=== PATIENT | female | born 1965 | race Caucasian/White ===

== ENCOUNTER → 2017-08-21 | Outpatient (CLI) | payer OTHER ==
[~2017-08-21] MED LIST: ABILIFY 5 MG TAB5 MG; ACETAMINOPHEN-1 EAC1 PO; ADULT LOW DOSE81 MG PO; ADVAIR 100-501 EACH; ADVAIR 250-501 EACH INH; ADVAIR HFA 230M12 GM; AMOX TR-K CLV1 EACH PO; ASPIR 8181 MG; ATIVAN0.5 MG PO; AUGMENTIN 875875 M1 PO; AUGMENTIN 875875 MG; AUGMENTIN 875875 MG PO; AZITHROMYCIN 2250 MG; BENADRYL25 MG PO; CARISOPRODOL 3350 MG PO; CHANTIX1 MG; CLARITIN10 MG; CLARITIN10 MG PO; CYMBALTA60 MG; DARVOCET-N 1001 EACH PO; DETROL; DEXILANT60 MG PO; DYMISTA NASAL S23 GM NS; FIORICET 50-321 EACH PO; FLAGYL500 MG; FLEXERIL PO; HYDROCODONE-AP1 EAC6 PO; IBUPROFEN 800800 M1 PO; LEVAQUIN 500 M500 MG PO; LIPITOR10 MG PO; LISINOPRIL5 MG PO; MEDROL DOSPAK21 TA1 PO; MEDROLDOSEPACK PO; MOBIC15 MG PO; MOBIC7.5 M1 PO; MONTELUKAST SOD10 MG PO; NAPROSYN500 MG PO; NEURONTIN300 MG PO; NICOTINE TRANSD14 M1 TP; NORCO 5-325 TA1 EACH PO; PERCOCET 5-3251 EACH PO; PERCOCET PO; PREDNISONE 20 M20 M1 PO; PREDNISONE50 MG PO; PRILOSEC40 MG; PROAIR HFA8.5 GM; PROAIR HFA8.5 GM IH; PROAIR HFA8.5 GM PO; ROBAXIN 750 MG750 M1 PO; SINGULAIR; SINGULAIR 10 MG10 MG PO; TESSALON PERLE100 MG; TRAMADOL 50 MG50 MG PO; TUMS; TUSSIONEX PENN473 ML PO; VITAMIN B-12500 MCG PO; VITAMIN D 5050000 I1 PO; VITAMIN D2000 UNIT PO; ZOFRAN ODT4 MG PO; ZOFRAN ODT4 MG SUBLING; ZOFRAN4 MG PO; ZOLOFT; ZOLOFT PO; ZOLOFT100 MG PO; ZOLOFT50 MG PO; ZPAK PO
== END ==
LOC: M.ULTRA 15:40
DX: M25.461 Effusion, right knee (principal); M71.21 Synovial cyst of popliteal space [Baker], right knee

== ENCOUNTER → 2018-02-20 | Outpatient (CLI) | payer OTHER | LOC: M.RAD 11:50 | DX: R05 Cough (principal); E78.00 Pure hypercholesterolemia, unspecified; G89.29 Other chronic pain; G43.909 Migraine, unspecified, not intractable, without status migrainosus; J45.909 Unspecified asthma, uncomplicated ==

== ENCOUNTER 2018-02-27 02:10 | Emergency (ER) | payer OTHER ==
[~2018-02-27] VITALS: Ht 170.2 cm; Wt 79.4 kg
[~2018-02-27 02:10] MED LIST changes: -ABILIFY 5 MG TAB5 MG; -ADVAIR HFA 230M12 GM; -ASPIR 8181 MG; -CYMBALTA60 MG; -LEVAQUIN 500 M500 MG PO; -MEDROL DOSPAK21 TA1 PO; -PROAIR HFA8.5 GM
[2018-02-27] MEDS ORDERED: PROAIR HFA8.5 GM (02:27)
[2018-02-27] MEDS ORDERED: CYMBALTA60 MG (02:28)
[2018-02-27] MEDS ORDERED: ADVAIR HFA 230M12 GM (02:28)
[2018-02-27] MEDS ORDERED: ASPIR 8181 MG (02:29)
[2018-02-27] MEDS ORDERED: ABILIFY 5 MG TAB5 MG (02:30)
[2018-02-27 02:47] LABS: ABSOLUTE BASOPHILS 0.1 thou/uL (0.0-0.2); ABSOLUTE EOSINOPHILS 0.2 thou/uL (0.0-0.7); ABSOLUTE LYMPHOCYTES 3.7 thou/uL (0.8-5.3); ABSOLUTE MONOCYTES 0.7 thou/uL (0.0-1.2); ABSOLUTE NEUTROPHILS 4.6 thou/uL (1.6-8.1); HEMATOCRIT 40.7 % (37.0-47.0); HEMOGLOBIN 13.7 gm/dL (12.0-15.0); LYMPHOCYTES 39.4 %; MCH 29.7 pg (26.0-34.0); MCHC 33.6 g/dL (28.0-37.0); MCV 88.6 fL (80.0-100.0); MONOCYTES 7.6 %; MPV 7.6 fl. (7.2-11.1); NUCLEATED RBCS 0 /100WBC; PLATELET COUNT* 341 thou/uL (150-400); RDW-CV 13.6 % (10.5-14.5); WBC 9.3 thou/uL (4.0-11.0)
[2018-02-27 03:05] LABS: ANION GAP 7 mmol/L (7-16); BUN 14 mg/dL (7-18); CALCIUM 9.1 mg/dL (8.5-10.1); CHLORIDE 103 mmol/L (98-107); CO2 27 mmol/L (21-32); GLUCOSE 121 mg/dL (70-99); POTASSIUM 3.6 mmol/L (3.5-5.1); SODIUM 137 mmol/L (136-145)
[2018-02-27 03:15] LABS: ALBUMIN 3.7 g/dL (3.4-5.0); ALKALINE PHOSPHATASE 68 U/L (46-116); LIPASE 204 U/L (73-393); NT-PRO BRAIN NAT PEPTIDE 34 pg/mL (<300); SGOT 16 U/L (15-37); SGPT 20 U/L (30-65); TOTAL BILIRUBIN 0.3 mg/dL (<0.1-1.0); TOTAL PROTEIN 6.9 g/dL (6.4-8.2); TROPONIN-I LEVEL <0.06 ng/mL (<0.06)
[2018-02-27] MEDS ORDERED: LEVAQUIN 500 M500 MG PO (03:28)
[2018-02-27] MEDS ORDERED: MEDROL DOSPAK21 TA1 PO (03:28)
[2018-02-27 03:45] VITALS: BP 98/48
--- NOTE | 2018-02-27 10:07 | EKG ---
[place] [address] ELECTROCARDIOGRAM REPORT Name: ARTURO HORTON Room: [facility]#: [id number] Admission: 02/27/18 Attend Phys: Discharge: 02/27/18 Date of : 65 Report #: [id number] THIS REPORT FOR: //name// 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
== END 2018-02-27 03:47 | disposition home or self-care (01) ==
LOC: M.ERS 02:10
PROVIDERS: Emergency Medicine
DX: J40 Bronchitis, not specified as acute or chronic (principal); E78.00 Pure hypercholesterolemia, unspecified; G43.909 Migraine, unspecified, not intractable, without status migrainosus; G89.29 Other chronic pain; M54.9 Dorsalgia, unspecified; Z88.5 Allergy status to narcotic agent; Z86.73 Personal history of transient ischemic attack (TIA), and cerebral infarction without residual deficits; Z88.8 Allergy status to other drugs, medicaments and biological substances; Z90.49 Acquired absence of other specified parts of digestive tract

== ENCOUNTER 2018-05-22 03:05 | Emergency (ER) | payer OTHER ==
[~2018-05-22] VITALS: Ht 172.7 cm; Wt 77.1 kg
[~2018-05-22 03:05] MED LIST changes: +ABILIFY 5 MG TAB5 MG; +ADVAIR HFA 230M12 GM; +ASPIR 8181 MG; +CYMBALTA60 MG; +LEVAQUIN 500 M500 MG PO; +MEDROL DOSPAK21 TA1 PO; +PROAIR HFA8.5 GM
[2018-05-22 03:48] VITALS: BP 118/60
--- NOTE | 2018-05-22 15:36 | EKG ---
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: : 1965 Requested By: Elsi Mcdermott Order Number: [id number] MD: Rich Reilly Measurements Intervals Fitzpatrick Rate: 71 P: 59 RI: 119 QRS: 43 QRSD: 113 T: 54 QT: 398 QTc: 433 Interpretive Statements Sinus rhythm Borderline short RI interval Borderline intraventricular conduction delay Compared to ECG 02/27/2018 02:28:26 No significant changes Electronically Signed On 05-22-2018 15:35:46 [place] by Rich Reilly [email or web address] <ELECTRONICALLY SIGNED> By: Rich Reilly MD, [facility] 05/22/18 1535 [id number] Rich Reilly MD, FAC /EPI
== END 2018-05-22 03:50 | disposition home or self-care (01) ==
LOC: M.ERS 03:05
DX: F41.9 Anxiety disorder, unspecified (principal); G89.29 Other chronic pain; M54.9 Dorsalgia, unspecified; J45.909 Unspecified asthma, uncomplicated; G43.909 Migraine, unspecified, not intractable, without status migrainosus; Z88.5 Allergy status to narcotic agent; Z88.8 Allergy status to other drugs, medicaments and biological substances; Z90.49 Acquired absence of other specified parts of digestive tract; Z86.73 Personal history of transient ischemic attack (TIA), and cerebral infarction without residual deficits; Z98.890 Other specified postprocedural states

== ENCOUNTER → 2018-07-05 | Outpatient (CLI) | payer OTHER | LOC: M.RAD 14:36 | DX: Z12.31 Encounter for screening mammogram for malignant neoplasm of breast (principal) ==

== ENCOUNTER 2018-10-22 19:21 | Emergency (ER) | payer OTHER ==
[~2018-10-22] VITALS: Ht 170.2 cm; Wt 74.8 kg
[2018-10-22] MEDS ORDERED: ACETAMINOPHEN-1 EAC1 PO (20:45)
[2018-10-22 21:00] VITALS: BP 131/62
== END 2018-10-22 21:02 | disposition home or self-care (01) ==
LOC: M.ERS 19:21
DX: M79.644 Pain in right finger(s) (principal); J45.909 Unspecified asthma, uncomplicated; E78.00 Pure hypercholesterolemia, unspecified; G43.909 Migraine, unspecified, not intractable, without status migrainosus; F41.9 Anxiety disorder, unspecified; G89.29 Other chronic pain; M54.9 Dorsalgia, unspecified; Z88.5 Allergy status to narcotic agent; Z86.73 Personal history of transient ischemic attack (TIA), and cerebral infarction without residual deficits; Z88.8 Allergy status to other drugs, medicaments and biological substances

== ENCOUNTER → 2019-07-15 | Outpatient (CLI) | payer OTHER | LOC: M.RAD 10:13 | DX: R05 Cough (principal) ==

== ENCOUNTER 2020-04-30 20:59 | Emergency (ER) | payer OTHER ==
[~2020-04-30] VITALS: Ht 170.2 cm; Wt 77.1 kg
[2020-04-30] MEDS ORDERED: LIPITOR10 MG PO (21:09)
[2020-04-30] MEDS ORDERED: DRIZALMA SPRINK20 MG PO (21:09)
[2020-04-30] MEDS ORDERED: CARAFATE 1 GM TA1 GM PO (22:43)
[2020-04-30] MEDS ORDERED: IPRAT-ALBUT 0.5-3 ML INH (22:47)
[2020-04-30] MEDS ORDERED: PREDNISONE 20 M20 M1 PO (22:47)
[2020-04-30 23:34] VITALS: BP 152/73
== END 2020-04-30 23:35 | disposition home or self-care (01) ==
LOC: M.ERS 20:59
DX: J40 Bronchitis, not specified as acute or chronic (principal); Z20.828 Contact with and (suspected) exposure to other viral communicable diseases; J45.909 Unspecified asthma, uncomplicated; G89.29 Other chronic pain; E78.00 Pure hypercholesterolemia, unspecified; G43.909 Migraine, unspecified, not intractable, without status migrainosus; Z88.8 Allergy status to other drugs, medicaments and biological substances; Z90.49 Acquired absence of other specified parts of digestive tract; Z86.73 Personal history of transient ischemic attack (TIA), and cerebral infarction without residual deficits; Z98.51 Tubal ligation status

== ENCOUNTER 2020-12-18 22:15 | Emergency (ER) | payer OTHER ==
[~2020-12-18] VITALS: Ht 170.2 cm; Wt 81.7 kg
[~2020-12-18 22:15] MED LIST changes: +CARAFATE 1 GM TA1 GM PO; +DRIZALMA SPRINK20 MG PO; +IPRAT-ALBUT 0.5-3 ML INH
[2020-12-19] MEDS ORDERED: MELOXICAM15 MG PO (00:37)
[2020-12-19] MEDS ORDERED: CYCLOBENZAPRINE5 MG PO (00:37)
[2020-12-19] MEDS ORDERED: ZOFRAN ODT4 MG PO (01:12)
[2020-12-19] MEDS ORDERED: HYDROCODON-ACE1 EAC7 PO (01:12)
[2020-12-19 01:28] VITALS: BP 132/86
== END 2020-12-19 01:28 | disposition home or self-care (01) ==
LOC: M.ERS 22:15
DX: M79.10 Myalgia, unspecified site (principal); Z20.822 Contact with and (suspected) exposure to COVID-19; R50.9 Fever, unspecified; J45.909 Unspecified asthma, uncomplicated; E78.00 Pure hypercholesterolemia, unspecified; G43.909 Migraine, unspecified, not intractable, without status migrainosus; G89.29 Other chronic pain; Z86.73 Personal history of transient ischemic attack (TIA), and cerebral infarction without residual deficits; Z88.5 Allergy status to narcotic agent

== ENCOUNTER 2021-03-02 20:09 | Emergency (ER) | payer OTHER ==
[~2021-03-02] VITALS: Ht 170.2 cm; Wt 81.7 kg
[~2021-03-02 20:09] MED LIST changes: +CYCLOBENZAPRINE5 MG PO; +HYDROCODON-ACE1 EAC7 PO; +MELOXICAM15 MG PO
[2021-03-02] MEDS ORDERED: ASA81BEC PO (20:30)
[2021-03-02] MEDS ORDERED: PREDNISONE 20 M20 MG PO (21:23)
[2021-03-02] MEDS ORDERED: TESSALON PERLE100 MG PO (21:23)
[2021-03-02] MEDS ORDERED: PROAIR HFA8.5 GM INH (21:23)
[2021-03-02] MEDS ORDERED: NEBULIZER MISCELL (21:23)
[2021-03-02] MEDS ORDERED: ALBUTEROL2.5 MG/31 INH (21:23)
[2021-03-02] MEDS ORDERED: TRAMADOL 50 MG50 MG PO (21:24)
[2021-03-02 22:30] VITALS: BP 128/65
== END 2021-03-02 22:30 | disposition home or self-care (01) ==
LOC: M.ERS 20:09
DX: J06.9 Acute upper respiratory infection, unspecified (principal); Z20.822 Contact with and (suspected) exposure to COVID-19; J45.909 Unspecified asthma, uncomplicated; E78.00 Pure hypercholesterolemia, unspecified; G43.909 Migraine, unspecified, not intractable, without status migrainosus; F41.9 Anxiety disorder, unspecified; Z86.73 Personal history of transient ischemic attack (TIA), and cerebral infarction without residual deficits; Z79.899 Other long term (current) drug therapy; Z79.82 Long term (current) use of aspirin; Z90.49 Acquired absence of other specified parts of digestive tract; Z88.5 Allergy status to narcotic agent; Z88.8 Allergy status to other drugs, medicaments and biological substances

== ENCOUNTER 2021-03-05 12:32 | Emergency (ER) | payer OTHER ==
[~2021-03-05] VITALS: Ht 170.2 cm; Wt 81.7 kg
[~2021-03-05 12:32] MED LIST changes: +ALBUTEROL2.5 MG/31 INH; +ASA81BEC PO; +NEBULIZER MISCELL; +PREDNISONE 20 M20 MG PO; +PROAIR HFA8.5 GM INH; +TESSALON PERLE100 MG PO
[2021-03-05 13:21] LABS: ABSOLUTE LYMPHOCYTES 1.2 thou/uL (0.8-5.3); ABSOLUTE MONOCYTES 0.6 thou/uL (0.0-1.2); ABSOLUTE NEUTROPHILS 10.7 thou/uL (1.6-8.1); BASOPHILS 0.2 %; EOSINOPHILS 0.3 %; HEMATOCRIT 39.5 % (37.0-47.0); HEMOGLOBIN 13.3 gm/dL (12.0-15.0); LYMPHOCYTES 9.9 %; MCH 31.4 pg (26.0-34.0); MCHC 33.6 g/dL (28.0-37.0); MCV 93.6 fL (80.0-100.0); MONOCYTES 4.9 %; MPV 7.9 fl. (7.2-11.1); NUCLEATED RBCS 0 /100WBC; PLATELET COUNT* 300 thou/uL (150-400); POLYS 84.7 %; RBC 4.22 mil/uL (4.20-5.00); RDW-CV 13.9 % (10.5-14.5); WBC 12.6 thou/uL (4.0-11.0)
[2021-03-05 13:38] LABS: CALCIUM 8.8 mg/dL (8.5-10.1); CREATININE 1.1 mg/dL (0.6-1.3); POTASSIUM 3.4 mmol/L (3.5-5.1)
[2021-03-05 13:42] LABS: ALBUMIN 3.9 g/dL (3.4-5.0); TOTAL BILIRUBIN 0.4 mg/dL (<0.1-1.0); TOTAL PROTEIN 7.1 g/dL (6.4-8.2)
[2021-03-05] MEDS ORDERED: AUGMENTIN 875-1 EACH PO (14:00)
[2021-03-05 14:10] VITALS: BP 134/70
== END 2021-03-05 14:10 | disposition home or self-care (01) ==
LOC: M.ERS 12:32
PROVIDERS: Physician Assistant
DX: J06.9 Acute upper respiratory infection, unspecified (principal); Z20.822 Contact with and (suspected) exposure to COVID-19; E78.00 Pure hypercholesterolemia, unspecified; G43.909 Migraine, unspecified, not intractable, without status migrainosus; F41.9 Anxiety disorder, unspecified; F17.290 Nicotine dependence, other tobacco product, uncomplicated; Z90.49 Acquired absence of other specified parts of digestive tract; Z86.73 Personal history of transient ischemic attack (TIA), and cerebral infarction without residual deficits; Z79.899 Other long term (current) drug therapy; Z79.82 Long term (current) use of aspirin; Z88.5 Allergy status to narcotic agent; Z88.1 Allergy status to other antibiotic agents; Z88.8 Allergy status to other drugs, medicaments and biological substances

== ENCOUNTER 2021-05-25 08:39 | Emergency (ER) | payer OTHER ==
[~2021-05-25] VITALS: Ht 170.2 cm; Wt 81.7 kg
[~2021-05-25 08:39] MED LIST changes: +AUGMENTIN 875-1 EACH PO
[2021-05-25 09:01] LABS: URINE BLOOD 3+ (Negative); URINE CLARITY CLEAR; URINE COLOR BROWN; URINE GLUCOSE-RANDOM TRACE (Negative); URINE KETONES 1+ (Negative); URINE PROTEIN 3+ (Negative); URINE SPECIFIC GRAVITY 1.025 (1.005-1.030); URINE UROBILINOGEN >= 8.0 E.U./dl (0.2-1.0)
[2021-05-25 09:03] LABS: URINE BILIRUBIN 3+ (Negative); URINE LEUKOCYTES-REFLEX 2+ (Negative); URINE NITRITE-REFLEX POSITIVE (Negative)
[2021-05-25 09:04] LABS: ICTOTEST (BILI CONFIRMATORY) Negative (Negative)
[2021-05-25 09:08] LABS: ABSOLUTE BASOPHILS 0.1 thou/uL (0.0-0.2); ABSOLUTE EOSINOPHILS 0.1 thou/uL (0.0-0.7); ABSOLUTE LYMPHOCYTES 1.6 thou/uL (0.8-5.3); ABSOLUTE NEUTROPHILS 8.6 thou/uL (1.6-8.1); BASOPHILS 0.5 %; EOSINOPHILS 0.6 %; HEMATOCRIT 42.4 % (37.0-47.0); HEMOGLOBIN 14.2 gm/dL (12.0-15.0); LYMPHOCYTES 14.5 %; MCH 31.7 pg (26.0-34.0); MCHC 33.5 g/dL (28.0-37.0); MCV 94.7 fL (80.0-100.0); MONOCYTES 8.4 %; MPV 7.8 fl. (7.2-11.1); NUCLEATED RBCS 0 /100WBC; PLATELET COUNT* 310 thou/uL (150-400); RBC 4.47 mil/uL (4.20-5.00); RDW-CV 13.9 % (10.5-14.5); WBC 11.3 thou/uL (4.0-11.0)
[2021-05-25 09:08] LABS: BACTERIA-REFLEX None Seen /HPF (None Seen); CASTS None Seen /LPF (None Seen); CRYSTALS None Seen /LPF (None Seen); SQUAMOUS 0-3 Few /LPF (0-3); URINE RBC >20 Many /HPF (0-2); URINE WBC-REFLEX 6-15 Few /HPF (0-5)
[2021-05-25] MEDS ORDERED: PYRIDIUM200 MG PO (09:10)
[2021-05-25] MEDS ORDERED: BACTRIM DS TAB1 EACH PO (09:10)
[2021-05-25 09:19] LABS: CALCIUM 8.8 mg/dL (8.5-10.1); CREATININE 1.2 mg/dL (0.6-1.3); POTASSIUM 3.9 mmol/L (3.5-5.1)
[2021-05-25 09:24] LABS: ALBUMIN 3.8 g/dL (3.4-5.0); TOTAL BILIRUBIN 0.4 mg/dL (<0.1-1.0); TOTAL PROTEIN 7.4 g/dL (6.4-8.2)
[2021-05-25 09:26] VITALS: BP 130/72
== END 2021-05-25 09:26 | disposition home or self-care (01) ==
LOC: M.ERS 08:39
PROVIDERS: Emergency Medicine
DX: N39.0 Urinary tract infection, site not specified (principal); J45.909 Unspecified asthma, uncomplicated; E78.00 Pure hypercholesterolemia, unspecified; G43.909 Migraine, unspecified, not intractable, without status migrainosus; F41.9 Anxiety disorder, unspecified; F17.200 Nicotine dependence, unspecified, uncomplicated; Z90.49 Acquired absence of other specified parts of digestive tract; Z79.51 Long term (current) use of inhaled steroids; Z79.82 Long term (current) use of aspirin; Z79.899 Other long term (current) drug therapy; Z88.5 Allergy status to narcotic agent; Z88.6 Allergy status to analgesic agent; Z88.8 Allergy status to other drugs, medicaments and biological substances